=== PATIENT | female | born 1955 | race Caucasian/White ===

== ENCOUNTER 2017-08-29 20:22 | Emergency (ER) | payer OTHER ==
[~2017-08-29] VITALS: Ht 172.7 cm; Wt 83.1 kg
[2017-08-29 21:28] LABS: HEMATOCRIT 45.8 % (36.0-46.0); HEMOGLOBIN 15.5 G/DL (11.9-15.5); MCH 31.3 PG (29.0-34.0); MCHC 33.8 G/DL (30.0-36.0); MCV 92.5 FL (83-99); PLATELET COUNT 314 K/uL (156-360); RBC DIS.WIDTH-CV 12.3 % (11.8-14.6); RED BLOOD COUNT 4.95 M/uL (3.80-5.20); WHITE BLOOD COUNT 6.6 K/uL (4.1-10.2)
[2017-08-29 21:41] LABS: CHLORIDE 108 mEq/L (99-109); POTASSIUM 4.8 mEq/L (3.7-5.4); SODIUM 142 mEq/L (136-147)
[2017-08-29 21:43] LABS: GLUCOSE 103 mg/dL (70-99)
[2017-08-29 21:47] LABS: CREATININE 0.9 mg/dL (0.6-1.3); GFR ESTIMATE (CALCULATED) > 59 mL/min/
[2017-08-29 21:48] LABS: UREA NITROGEN (BUN) 15 mg/dL (9-23)
[2017-08-30] MEDS ORDERED: FLONASE ALLERG9.9 ML BOTH NARES (00:05)
[2017-08-30 00:27] VITALS: BP 149/88
== END 2017-08-30 00:27 | disposition home or self-care (01) ==
LOC: EME 20:22
DX: J32.0 Chronic maxillary sinusitis (principal); J06.9 Acute upper respiratory infection, unspecified
CPT/HCPCS: 70450; 71046; 80048; 85027; 94640; 99281; 99284